=== PATIENT | male | born 1985 | race Caucasian/White ===

== ENCOUNTER 2022-02-16 22:33 | Emergency (ER) | payer BC ==
[2022-02-16 22:55] VITALS: BP 138/92
[2022-02-16] MEDS ORDERED: Rivaroxaban 10 MG Tab PO ONE (23:18)
[2022-02-17 00:51] VITALS: PULSE 68
== END 2022-02-16 23:50 | disposition home or self-care (01) ==
LOC: MW.ED 22:33
DX: I80.3 Phlebitis and thrombophlebitis of lower extremities, unspecified (principal)
CPT/HCPCS: 73560; 99283; A9270